=== PATIENT | male | born 1985 | race Caucasian/White ===

== ENCOUNTER 2017-02-19 09:30 | Emergency (ER) | payer OTHER ==
--- NOTE | 2017-02-19 11:38 | RAD ---
Indication: Left foot pain. 3 views of left foot demonstrates no fracture. No other bone or joint abnormality is identified. IMPRESSION: No fracture of left foot is noted.
[2017-02-19 12:12] VITALS: BP 141/96
--- NOTE | 2017-02-19 12:32 | ED ---
Mary Rangel Alfonso, scribed for Carlos Juarez MD on 02/19/17 at 1011 . Lower Extremity - HPI Summary HPI Summary: This patient is a 31 year old M presenting to [facility] with a chief complaint of left foot pain since 5 days ago. The pain is described as tightness and pressure in the left foot. The patient rates the pain 6/10 in severity. Symptoms alleviated by nothing. Patient reports left foot swelling (worse since 1.5 days ago). He denies recent trauma to the LLE. He reports ambulating well. - History of Current Complaint Chief Complaint: EDExtremityLower Stated Complaint: LT FOOT PAIN/SWELLING Time Seen by Provider: 02/19/17 10:08 Hx Obtained From: Patient Onset of Pain: Days - 5 Onset/Duration: Days - 5 Severity Initially: Moderate Severity Currently: Moderate Pain Intensity: 6 Pain Scale Used: 0-10 Numeric Timing: Constant Location: Is Discrete @ - left foot Associated Signs And Symptoms: Positive: Swelling Alleviating Factor(s): Nothing Able to Bear Weight: Yes - Allergies/Home Medications Allergies/Adverse Reactions: Allergies Allergy/AdvReac Type Severity Reaction Status Date / Time No Known Allergies Allergy Verified 06/07/12 10:05 PMH/Surg Hx/FS Hx/Imm Hx Sensory History: Denies: Hx Deafness Opthamlomology History: Denies: Hx Legally Blind Infectious Disease History: No Infectious Disease History: Denies: Traveled Outside the [place] in Last 30 Days - Family History Known Family History: Negative: Cardiac Disease, Diabetes - Social History Alcohol Use: Rare Substance Use Type: Reports: None Smoking Status (MU): Never Smoked Tobacco Review of Systems Negative: Fever Positive: Other - left foot pain, left foot swelling; negative LLE trauma All Other Systems Reviewed And Are Negative: Yes Physical Exam Triage Information Reviewed: Yes Vital Signs On Initial Exam: Initial Vitals Temp Pulse Resp BP Pulse Ox 97.1 F 64 17 137/84 98 02/19/17 09:50 02/19/17 09:50 02/19/17 09:50 02/19/17 09:50 02/19/17 09:50 Vital Signs Reviewed: Yes Appearance: Positive: Well-Appearing, No Pain Distress, Obese Skin: Positive: Warm, Skin Color Reflects Adequate Perfusion, Dry Head/Face: Positive: Normal Head/Face Inspection Eyes: Positive: Normal ENT: Positive: Normal ENT inspection Neck: Positive: Supple, Nontender Respiratory/Lung Sounds: Positive: Clear to Auscultation, Breath Sounds Present Cardiovascular: Positive: RRR Abdomen Description: Positive: Nontender, Soft Bowel Sounds: Positive: Present Musculoskeletal: Positive: Other - Pitting edema in left lateral foot and ankle. Tender at lateral malleolus and proximal left foot. Neurological: Positive: Normal, Sensory/Motor Intact, Alert, Oriented to Person Place, Time, CN Intact II-III Psychiatric: Positive: Affect/Mood Appropriate Diagnostics - Vital Signs Vital Signs Temp Pulse Resp BP Pulse Ox 02/19/17 09:59 97.2 F 62 12 140/96 99 02/19/17 09:50 97.1 F 64 17 137/84 98 - Laboratory Lab Statement: Any lab studies that have been ordered have been reviewed, and results considered in the medical decision making process. - Radiology Foot X-ray Radiology Interpretation Completed By: Radiologist - No fracture of left foot is noted. ED physician has reviewed this radiology report and agrees. Lower Extremity Course/Dx - Course Course Of Treatment: Mr. Vazquez has tenderness to varus stress of his ankle with mild swelling and no known trauma. I will treat him symptomatically and see how it goes. - Diagnoses Provider Diagnoses: Tendonitis of ankle Discharge - Discharge Plan Condition: Stable Disposition: HOME Patient Education Materials: Tendinitis (ED) Forms: *Work Release Referrals: Raquel Recinos MD [Primary Care Provider] - 4 Days Additional Instructions: Follow up with your primary care provider. Take ibuprofen for pain. The documentation as recorded by the Mary ruiz Alfonso accurately reflects the service I personally performed and the decisions made by Larry mei Richard L, MD.
== END 2017-02-19 12:14 | disposition home or self-care (01) ==
LOC: ED 09:30
DX: M77.8 Other enthesopathies, not elsewhere classified (principal); M79.89 Other specified soft tissue disorders
CPT/HCPCS: 99282

== ENCOUNTER 2017-03-19 08:38 | Emergency (ER) | payer OTHER ==
[2017-03-19 09:35] VITALS: BP 142/89
--- NOTE | 2017-03-19 10:09 | UC ---
Lower Extremity/Ankle HPI - HPI Summary HPI Summary: Patient presents with complaints of right foot pain, swelling, and pain x 2 days. He states it became worse overnight. He complains of constant pain that is worse when he flexes his toes, or walks. He denies any injury or trauma. He states he had similar symptoms about one month ago was diagnoses with tendonitis , treated and the symptoms resolved. Denies fever, chills, joint pain, or rashes , or injections. - History of Current Complaint Chief Complaint: UCLowerExtremity Stated Complaint: FOOT PAIN Time Seen by Provider: 03/19/17 09:51 Hx Obtained From: Patient Onset/Duration: Sudden Onset, Lasting Days Severity Initially: Mild Severity Currently: Moderate Aggravating Factor(s): Standing, Ambulation, Other - flexion of toes Alleviating Factor(s): Rest, Elevation, Ice Able to Bear Weight: Yes - Risk Factors Gout Risk Factors: Negative DVT Risk Factors: Negative Septic Arthritis Risk Factor: Negative - Allergies/Home Medications Allergies/Adverse Reactions: Allergies Allergy/AdvReac Type Severity Reaction Status Date / Time No Known Allergies Allergy Verified 03/19/17 09:29 PMH/Surg Hx/FS Hx/Imm Hx Previously Healthy: Yes - Surgical History Surgical History: Yes Surgery Procedure, Year, and Place: hernia-child - Family History Known Family History: Negative: Cardiac Disease, Diabetes - Social History Occupation: Employed Full-time Lives: Alone Alcohol Use: Rare Substance Use Type: Marijuana Substance Use Comment - Amount & Last Used: 2 x daily Smoking Status (MU): Never Smoked Tobacco Review of Systems Constitutional: Negative Skin: Other - redness, pain and swelling of topof right foot, and between this second and third toes. Eyes: Negative ENT: Negative Respiratory: Negative Cardiovascular: Negative Gastrointestinal: Negative Genitourinary: Negative Motor: Negative Neurovascular: Negative Musculoskeletal: Negative All Other Systems Reviewed And Are Negative: Yes Physical Exam Triage Information Reviewed: Yes Appearance: Well-Appearing Vital Signs: Initial Vital Signs Temp 98.3 F 03/19/17 09:29 Pulse 74 03/19/17 09:29 Resp 18 03/19/17 09:29 BP 142/89 03/19/17 09:29 Pulse Ox 100 03/19/17 09:29 Vital Signs Reviewed: Yes Eye Exam: Normal ENT Exam: Normal Dental Exam: Normal Neck exam: Normal Neck: Positive: 1 Respiratory Exam: Normal Cardiovascular Exam: Normal Abdominal Exam: Normal Musculoskeletal Exam: Normal Skin: Positive: Other - right foot, erythma, slight soft tissue swelling of dorsum, second and third toes are also erythemic and edematous 2-3+ vasc: cap refill less that three seconds. neuro no deficits. rom intact of toes, foot and ankle. Lower Extremity Course/Dx - Course Course Of Treatment: Patient presents with cellulitis of right foot, he was started on keflex 500 mg by mouth four times daily x 10 days. I arrange for close follow up with Dr. Recinos tomorrow at 1:30p.m. If for any reason his symptoms worsen before that I told him to go to the ER. - Differential Dx/Diagnosis Differential Diagnosis/HQI/PQRI: Cellulitis Provider Diagnoses: cellulitis Discharge - Discharge Plan Condition: Stable Disposition: HOME Prescriptions: Cephalexin CAP* [Keflex CAP*] 500 mg PO QID #40 cap predniSONE TAB* [Deltasone TAB*] 20 mg PO DAILY #5 tab Patient Education Materials: Cellulitis (ED) Forms: *Work Release Referrals: Raquel Recinos MD [Primary Care Provider] - Additional Instructions: Dr. Recinos will see your tomorrow at 1:30 pm.
== END 2017-03-19 10:14 | disposition home or self-care (01) ==
LOC: UCEAST 08:38
DX: L03.90 Cellulitis, unspecified (principal); F12.90 Cannabis use, unspecified, uncomplicated
CPT/HCPCS: 36415; 86703; 99212; G0463

== ENCOUNTER 2019-07-26 09:13 | Emergency (ER) | payer OTHER ==
--- OUTSIDE RECORDS SUMMARY | 2019-07-26 09:19 | XMS REPORT | Summary of Care ---
:1985 Author Organization [facility] Address [address] [address] Care Team Providers Name Role Phone Raquel Recinos MD Primary Care Provider Reason for Visit Reason Comments Low Back Pain Encounter Details Date Type Department Care Team Description 07/08/2019 Office Visit [facility] Abril Almnaza, HOWARD Displacement of lumbar - [facility] [address] [place] [address] intervertebral disc Therapy [address] without myelopathy [address] [place] [address] (Primary Dx) [address] [phone] [place] [address] Allergies No Known Allergiesdocumented as of this encounter (statuses as of 07/08/2019) Medications Medication Sig Dispensed Refills Start Date End Date Status albuterol HFA Take 2 Puffs by 0 Active (VENTOLIN) 108 (90 inhalation. BASE) MCG/ACT Inhalation Aero Soln fluticasone-salmeter Take 1 INHL by 0 Active ol diskus (ADVAIR inhalation TWICE DISKUS) 250-50 DAILY. MCG/DOSE Inhalation AEROSOL POWDER, BREATH ACTIVATED HYDROcodone-acetamin Take 1 Tab by mouth. 0 Active ophen (NORCO) 10-325 MG Oral Tab IBUPROFEN 200 PO Take by mouth. 0 Active Loratadine Take by mouth. 0 Active (CLARITIN) 10 MG Oral Cap amLodipine (NORVASC) Take 10 mg by mouth 0 Active 10 MG Oral Tab DAILY. documented as of this encounter (statuses as of 07/08/2019) Active Problems No known active problemsdocumented as of this encounter (statuses as of 2019) Immunizations Name Administration Dates Next Due DTAP Vaccine 08/31/1989, 11/02/1986, 1985, 1985, 1985 HIB 03/29/1987 Hepatitis B Vaccine 08/09/1995, 03/30/1995, 02/23/1995 MMR VACCINE 08/31/1989, 06/15/1986 Polio - Inactivated Vaccine 11/02/1986, 1985, 1985, 1985 TETANUS & DIPHTHERIA TOXOID (OVER 7 07/28/1998 YRS) Varicella Vaccine Live 08/02/1988 documented as of this encounter Social History Tobacco Use Types Packs/Day Years Used Date Former Smoker Quit: 06/04/2007 Smokeless Tobacco: Never Used Alcohol Use Drinks/Week oz/Week Comments Yes 1 a month Sex Assigned at Date Recorded Not on file Job Start Date Occupation Industry Not on file Not on file Not on file Travel History Travel Start Travel End No recent travel history available. documented as of this encounter Last Filed Vital Signs Not on filedocumented in this encounter Progress Notes Abril Almanza, PT - 07/08/2019 2:30 PM EST [facility] Treatment Note Outpatient Physical Therapy Services [facility] [address] [place] [phone] Treatment Number: 5 Referring Physician: Levi Kim Primary Diagnosis: ICD-9-CM ICD-10-CM 1. Displacement of lumbar intervertebral disc without myelopathy 722.10 M51.26 Plan of Care Expiration Date: Time In: 023 Time Out: 030 Total Session Minutes: 30 Pain at Start of Care: 3/10 Pain at End of Care: 2/10 Subjective Comments: Tightness in the right calf. Pain at the low back and buttocks/hip at 3/10 today. Worst pain is with putting socks/shoes on in the AM. Denies n/t in the leg in the last couple days. Interventions: Therapeutic Exercises (68697) Number of Exercises?: 9 Total Minutes (all Therapeutic Exercise): 25 Exercise #1 Exercise Name: Prone on elbows Reason for Exercise: Joint Mobility Location/Body Area: Lumbar Spine Sets/Reps: 3x30 seconds Exercise #2 Exercise Name: prone quad stretch Reason for Exercise: Flexibility Location/Body Area: Lumbar Spine Sets/Reps: 3x30 seconds Exercise #3 Exercise Name: piriformis stretch Reason for Exercise: Flexibility Location/Body Area: Lumbar Spine Sets/Reps: 3x30 seconds Exercise #4 Exercise Name: standing gastroc stretch Reason for Exercise: Flexibility Location/Body Area: LE Sets/Reps: 3x30 seconds Exercise #5 Exercise Name: hip flexor stretch Reason for Exercise: Flexibility Location/Body Area: Lumbar Spine Sets/Reps: 3x30 seconds Exercise #6 Exercise Name: hamstring stretch Reason for Exercise: Flexibility Location/Body Area: Lumbar Spine Sets/Reps: 3x30 seconds Exercise #7 Exercise Name: bridge with TA activation Reason for Exercise: Strengthening Location/Body Area: Lumbar Spine Sets/Reps: 8 Exercise #8 Exercise Name: SLR with Ta Reason for Exercise: Strengthening Location/Body Area: Lumbar Spine Sets/Reps: 8 Modalities Modalities Needed?: Estim Unattended ([employer] [id number]) Estim Unattended ([employer]Pura 25702) Reason for Use: Pain Control Body Area: lumbar Waveform Used: Interferential Parameters: 10-11.5 Total Minutes: 10 Cueing for body mechanics with positions changes required Assessment: Patient demonstrates good recall of HEP. Positive SLR on the right still. Tolerating more ROM before test is positive. Patient also reports ongoing difficulty in prolonged sitting, deliveries in the truck, riding the bus , lifting . Skilled Physical Therapy services are required to address ongoing functional and objective limitations/impairments including decreased LE flexibility, decrease lumbar ROM, decreased core and lateral hip strength. Plan for Next Visit: Continue per POC. Total UNTIMED Code Treatment Minutes: 10 Total TIMED Code Treatment Minutes: 25 Total Treatment Minutes: 35 Re- Eval: Insurance/Visits: Author: Abril Almanza, PT 07/08/2019 14:55 documented in this encounter Plan of Treatment Date Type Specialty Care Team Description 07/10/2019 Office Visit Physical Therapy Abril Almanza, PT [address] [place] [address] [phone] 07/15/2019 Office Visit Physical Therapy Abril Almanza, PT [address] [place] [address] [place] [address] [phone] 07/17/2019 Office Visit Physical Therapy Abril Almanza, PT [address] [place] [address] [place] [address] [phone] Health Maintenance Due Date Last Done Comments DEPRESSION SCREENING 1997 DTaP/Tdap/Td Vaccines (7 - 07/28/2008 07/28/1998, 08/31/1989, Tdap) 11/02/1986, Additional history exists INFLUENZA VACCINE (#1) 2019 HEPATITIS A IMMUNIZATION Aged Out No longer eligible SERIES based on patient's age to complete this topic HPV IMMUNIZATION SERIES Aged Out No longer eligible based on patient's age to complete this topic MENINGOCOCCAL VACCINE IMM Aged Out No longer eligible based on patient's age to complete this topic PNEUMOCOCCAL 0-64 YRS Aged Out No longer eligible based on patient's age to complete this topic documented as of this encounter Results Not on filedocumented in this encounter Visit Diagnoses Diagnosis Displacement of lumbar intervertebral disc without myelopathy documented in this encounter Guarantor Name Account Type Relation to Date of Phone Billing Patient Address Hal Vazquze II Personal/Family 1985 [address] (Home) [place], [place] (Work) [address] documented as of this encounter
--- OUTSIDE RECORDS SUMMARY | 2019-07-26 09:19 | XMS REPORT | Summary of Care ---
:1985 Author Organization [facility] Address [address] [address] Care Team Providers Name Role Phone Raquel Recinos MD Primary Care Provider Reason for Visit Reason Comments Low Back Pain Encounter Details Date Type Department Care Team Description 07/01/2019 Office Visit [facility] Abril Almanza, HOWARD Displacement of lumbar - [facility] [address] [place] [address] intervertebral disc Therapy [address] without myelopathy [address] [place] [address] (Primary Dx) [address] [phone] [place] [address] Allergies No Known Allergiesdocumented as of this encounter (statuses as of 07/01/2019) Medications Medication Sig Dispensed Refills Start Date [...] as of this encounter (statuses as of 07/01/2019) Active Problems No known active problemsdocumented as [...] encounter Progress Notes Abril Almanza, PT - 07/01/2019 3:30 PM EST [facility] Treatment Note Outpatient Physical Therapy Services [facility] [address] [place] [phone] Treatment Number: 3 Referring Physician: Levi Kim Primary Diagnosis: ICD-9-CM ICD-10-CM 1. Displacement of lumbar intervertebral disc without myelopathy 722.10 M51.26 Plan of Care Expiration Date: Time In: 339 Time Out: 404 Total Session Minutes: 25 Pain at Start of Care: 12/11 Pain at End of Care: 10/11 Subjective Comments: Perry pretty good over the weekend but then pain started to go down the leg today at work. 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 Interventions: Therapeutic Exercises (47977) Number of Exercises?: 7 Total Minutes (all Therapeutic Exercise): 25 Exercise #1 Exercise Name: Prone on elbows Reason for Exercise: Joint Mobility Location/Body Area: Lumbar Spine Sets/Reps: 3x30 seconds Exercise #2 Exercise Name: prone knee flexion Reason for Exercise: Joint Mobility Location/Body Area: Lumbar Spine Sets/Reps: 10 Exercise #3 Exercise Name: piriformis stretch Reason for Exercise: Flexibility Location/Body Area: Lumbar Spine Sets/Reps: 3x30 seconds Exercise #5 Exercise Name: hip flexor stretch Reason for Exercise: Flexibility Exercise #6 Exercise Name: 90-90 glides Reason for Exercise: Muscle Performance;Flexibility Location/Body Area: Lumbar Spine Sets/Reps: 5x5 Exercise #7 Exercise Name: bridge with TA activation Reason for Exercise: Strengthening Location/Body Area: Lumbar Spine Sets/Reps: 8 Modalities Modalities Needed?: Estim Unattended ([employer] [id number]) Estim Unattended ([employer] 81594) Reason for Use: Pain Control Body Area: lumbar Waveform Used: Interferential Parameters: 10-11.5 Total Minutes: 10 Assessment: Patient demonstrates improved lumbar ROM. Tolerates prone on hands without complaints. Patient also reports ongoing difficulty in sitting, twisting , repetitive bending/lifting. Skilled Physical Therapy services are required to address ongoing functional and objective limitations/impairments including decreased LE flexibility, decreased core strength, impaired posture and body mechanics. Plan for Next Visit: Continue per POC. Add more strengthening as tolerated. Total UNTIMED Code Treatment Minutes: 10 Total TIMED Code Treatment Minutes: 25 Total Treatment Minutes: 35 Author: Abril Almanza, HOWARD 07/01/2019 17:16 documented in this encounter Plan of Treatment Date Type Specialty Care Team Description 07/03/2019 Office Visit Physical Therapy Abril Almanza, PT [address] [place] [address] [place] [address] [phone] 07/07/2019 Office Visit Orthopedics Levi Kim MD [address] [facility] [place] [address] [phone] 07/08/2019 Office Visit Physical Therapy Abril Almanza, PT [address] [facility] [place] [address] [phone] 07/10/2019 Office Visit Physical Therapy Abril Almanza, PT [address] [place] [address] [place] [address] [phone] 07/15/2019 Office Visit Physical Therapy Abril Almanza, PT [address] [place] [address] [phone] 07/17/2019 Office Visit Physical Therapy Abril Almanza, PT [address] [place] [address] [place] [address] [phone] Health Maintenance Due Date Last Done Comments [...] to Date of Phone Billing Patient Address GeorgeHal II Personal/Family 1985 [address] (Home) [place], [place] ([place]) [address] documented as of this encounter
--- OUTSIDE RECORDS SUMMARY | 2019-07-26 09:19 | XMS REPORT | Summary of Care ---
:1985 Author Organization [facility] Address [address] [address] Care Team Providers Name Role Phone Raquel Recinos MD Primary Care Provider Reason for Visit Reason Comments Low Back Pain Encounter Details Date Type Department Care Team Description 07/22/2019 Office Visit [facility] Abril Almanza, HOWARD Displacement of lumbar - [facility] [address] [place] [address] intervertebral disc Therapy [address] without myelopathy [address] [place] [address] (Primary Dx) [address] [phone] [place] [address] Allergies No Known Allergiesdocumented as of this encounter (statuses as of 07/22/2019) Medications Medication Sig Dispensed Refills Start Date [...] as of this encounter (statuses as of 07/22/2019) Active Problems No known active problemsdocumented as [...] Assigned at Date Recorded Not on file documented as of this encounter Last Filed Vital Signs Not on filedocumented in this encounter Progress Notes Abril Almanza, PT - 07/22/2019 2:30 PM EST [facility] Treatment Note Outpatient Physical Therapy [facility] [address] [place] [phone] Treatment Number: 7 Referring Physician: Levi Kim Primary Diagnosis: ICD-9-CM ICD-10-CM 1. Displacement of lumbar intervertebral disc without myelopathy 722.10 M51.26 Plan of Care Expiration Date: Time In: 229 Time Out: 299 Total Session Minutes: 30 Pain at Start of Care: 06/13 Pain at End of Care: 06/13 Subjective Comments: Aching pain at the central low back today. No pain on Sunday but Sunday it ached because he was sitting more. Denies leg pain today. Interventions: Therapeutic Exercises (28609) Number of Exercises?: 10 Total Minutes (all Therapeutic Exercise): 25 Exercise #1 Exercise Name: Prone on elbows Reason for Exercise: Joint Mobility Location/Body Area: Lumbar Spine Sets/Reps: 3x30 seconds Exercise #3 Exercise Name: piriformis stretch Reason for Exercise: Flexibility Location/Body Area: Lumbar Spine Sets/Reps: 3x30 seconds Exercise #4 Exercise Name: standing gastroc stretch Reason for Exercise: Flexibility Location/Body Area: LE Sets/Reps: 3x30 seconds Exercise #6 Exercise Name: hamstring stretch Reason for Exercise: Flexibility Location/Body Area: Lumbar Spine Sets/Reps: 3x30 seconds Exercise #7 Exercise Name: bridge with TA activation Reason for Exercise: Strengthening Location/Body Area: Lumbar Spine Sets/Reps: 8 Exercise #8 Exercise Name: SLR with Ta Reason for Exercise: Strengthening Location/Body Area: Lumbar Spine Sets/Reps: 8 Exercise #9 Exercise Name: wall squat with Ta Reason for Exercise: Strengthening Location/Body Area: Lumbar Spine Sets/Reps: 10x5 Exercise #10 Exercise Name: bug Reason for Exercise: Strengthening Location/Body Area: Lumbar Spine Sets/Reps: 5 Estim Unattended ([employer] [id number]) Reason for Use: Pain Control Body Area: lumbar Waveform Used: Interferential Parameters: 18 Total Minutes: 10 5 minutes of estim with prone therapeutic exercise. HEP progressed. Stressed importance of continuing with strengthening and stretching even after symptoms subside Assessment: Patient demonstrates decreased LE flexibility, decreased core strength, impaired body mechanics.. Patient also reports ongoing difficulty in lifting, prolonged sitting, driving. Skilled Physical Therapy services are required to address ongoing functional and objective limitations/impairments including those state above. Plan for Next Visit: Continue per POC. Total UNTIMED Code Treatment Minutes: 10 Total TIMED Code Treatment Minutes: 25 Total Treatment Minutes: 35 Re- Eval: Insurance/Visits: Author: Abril Almanza, PT 07/22/2019 15:57 documented in this encounter Plan of Treatment Date Type Specialty Care Team Description 07/29/2019 Office Visit Physical Therapy Abril Almanza, PT [address] [place] [address] [phone] Health Maintenance Due Date Last Done Comments [...] Date of Phone Billing Patient Address Hal Vazquez II Personal/Family 1985 [address] (Home) [place], [place] ([place]) [address] documented as of this encounter
--- OUTSIDE RECORDS SUMMARY | 2019-07-26 09:19 | XMS REPORT | Summary of Care ---
:1985 Author Organization [facility] Address 1 [facility] ANJEL [place] [address] Care Team Providers Name Role Phone Raquel Recinos MD Primary Care Provider Reason for Visit Reason Comments Follow Up 2 wk fu low back pain. Patient states his low back is doing alright , less pain. Patient is going to PT and it is going good. Encounter Details Date Type Department Care Team Description 07/07/2019 Office Visit [facility] - Levi Kim MD Ruptured lumbar disc (Primary Dx); [place] 10 [facility] Cervical radiculopathy 10 [facility] [address] [place], [place] [address] [place] [address] [phone] Allergies No Known Allergiesdocumented as of this encounter (statuses as of 07/07/2019) Medications Medication Sig Dispensed Refills Start Date [...] as of this encounter (statuses as of 07/07/2019) Active Problems No known active problemsdocumented as [...] of this encounter Last Filed Vital Signs Vital Sign Reading Time Taken Comments Blood Pressure 121/94 07/07/2019 10:49 AM EST Pulse 86 07/07/2019 10:49 AM EST Temperature - - Respiratory Rate - - Oxygen Saturation - - Inhaled Oxygen Concentration - - Weight 131.5 kg (290 lb) 07/07/2019 10:49 AM EST Height 193 cm (6' 4") 07/07/2019 10:49 AM EST Body Mass Index 35.3 07/07/2019 10:49 AM EST documented in this encounter Progress Notes Levi Kim MD - 07/07/2019 11:00 AM EST Name: Hal Vazquez II : 1985 Date of Service: 07/07/2019 Chief Complaint Patient presents with Follow Up 2 wk fu low back pain. Patient states his low back is doing alright, less pain. Patient is going to PT and it is going good. Doing much better. Patient feels physical therapy is helping. Minimal neck and shoulder pain. Still having radicular pain primarily in the posterior aspect of the right leg but not distal to the ankle. 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 Describes pain as 2/10. Patient already had approximately 2-week trial of prednisone that did not help very much. Physical exam shows a healthy-appearing man in no acute distress. Alert and oriented. Shoulder range of motion is full. No pain on motion. Negative impingement sign. Low back nontender. Hip rangeof motion is full. Positive straight leg raising. No focal motor or sensory abnormalities. Impression: Doing better. Plan: Continue physical therapy. If radicular pain remains or interferes with activities of daily living, consider injections. His father and I believe his alcohol have had epidurals. ICD-9-CM ICD-10-CM 1. Ruptured lumbar disc 722.10 M51.26 2. Cervical radiculopathy 723.4 M54.12 Author: Levi Kim MD 07/07/2019 11:10 This record contains sections created with voice recognition software. It has been electronically signed. A reasonable attempt at proofreading has been made. Please call with any questions or corrections. documented in this encounter Plan of Treatment Date Type Specialty Care Team Description 07/08/2019 Office Visit Physical Therapy Abril Almanza, PT [address] [place] [address] [phone] 07/10/2019 Office Visit Physical Abril Robertson, PT [address] [place] [address] [phone] 07/15/2019 Office Visit Abril Ellington, PT [address] [place] [address] [phone] 07/17/2019 Office Visit Physical Therapy Abril Almanza, PT [address] [place] [address] [phone] Health Maintenance Due Date Last Done Comments [...] filedocumented in this encounter Visit Diagnoses Diagnosis Ruptured lumbar disc Displacement of lumbar intervertebral disc without myelopathy Cervical radiculopathy Brachial neuritis or radiculitis nos documented in this encounter Guarantor Name Account Type Relation to Date of Phone Billing Patient Address Hal Vazquez II Personal/Family 1985 [address] [facility] (Home) [place], [place] (Work) [address] documented as of this encounter
--- OUTSIDE RECORDS SUMMARY | 2019-07-26 09:19 | XMS REPORT | Summary of Care ---
:1985 Author Organization [facility] Address 1 [address] [place] [address] Care Team Providers Name Role Phone Raquel Recinos MD Primary Care Provider Reason for Visit Reason Comments Low Back Pain Encounter Details Date Type Department Care Team Description 07/03/2019 Office Visit [facility] Abril Almanza, HOWARD Displacement of lumbar - [facility] [address] [place] [address] intervertebral disc Therapy [address] without myelopathy 10 [place] [address] (Primary Dx) [address] [phone] [place] [address] Allergies No Known Allergiesdocumented as of this encounter (statuses as of 07/03/2019) Medications Medication Sig Dispensed Refills Start Date [...] as of this encounter (statuses as of 07/03/2019) Active Problems No known active problemsdocumented as [...] encounter Progress Notes Abril Almanza, PT - 07/03/2019 2:30 PM EST [facility] [place] [facility] Treatment Note Outpatient Physical Therapy Services [facility] [address] [place] [phone] Treatment Number: 4 Referring Physician: Levi Kim Primary Diagnosis: ICD-9-CM ICD-10-CM 1. Displacement of lumbar intervertebral disc without myelopathy 722.10 M51.26 Plan of Care Expiration Date: Time In: 237 Time Out: 300 Total Session Minutes: 23 Pain at Start of Care: 3/10 Pain at End of Care: 2/10 Subjective Comments: Has had no neck or shoulder pain this week. Low back seems better. Denies numbness and tingling in the leg. Just feels tight in the back of the leg. Interventions: Therapeutic Exercises (59677) Number of Exercises?: 7 Total Minutes (all [...] Sets/Reps: 8 Modalities Modalities Needed?: Estim Unattended ([employer] 38838) Estim Unattended ([employer] 24538) Reason for Use: Pain Control Body Area: lumbar Waveform Used: Interferential Parameters: 10-11.5 Total Minutes: 10 Assessment: Patient demonstrates improved tolerance for therapeutic exercise. Pain appears to be centralizing. Patient also reports ongoing difficulty in prolonged sitting, twisting, riding the bus. Skilled Physical Therapy services are required to address ongoing functional and objective limitations/ impairments including decreased lumbar ROM, decreased LE flexibility, decreased core strength, impaired posture. Plan for Next Visit: Continue per POC. Add SLR with Ta if tolerated. Total UNTIMED Code Treatment Minutes: 10 Total TIMED Code Treatment Minutes: 25 Total Treatment Minutes: 35 Author: Abril Almanza, PT 07/03/2019 14:58 documented in this encounter Plan of Treatment Date Type Specialty Care Team Description 07/07/2019 Office Visit Orthopedics Levi Kim MD 10 [facility] [place] [address] [phone] 07/08/2019 Office Visit Physical Therapy Abril Almanza, PT [address] [place] [address] [place] [address] [phone] 07/10/2019 Office Visit Physical Therapy Abril Almnaza, PT [address] [place] [address] [place] [address] [phone] 07/15/2019 Office Visit Physical Therapy Abril Almanza, PT [address] [place] [address] [place] [address] [phone] 07/17/2019 Office Visit Physical Therapy Abril Almanza, PT [address] [place] [address] [place] [address] [phone] Health Maintenance Due Date Last Done Comments [...] Address Hal Vazquez II Personal/Family 1985 [address] [facility] (Home) [place], [place] (Work) [address] documented as of this encounter
--- OUTSIDE RECORDS SUMMARY | 2019-07-26 09:19 | XMS REPORT | Summary of Care ---
:1985 Author Organization [facility] Address 1 [address] [place] [address] Care Team Providers Name Role Phone Raquel Recinos MD Primary Care Provider Reason for Visit Reason Comments Low Back Pain Encounter Details Date Type Department Care Team Description 07/15/2019 Office Visit [facility] Abril Almanza, HOWARD Displacement of lumbar - [place] [facility] 10 [facility] intervertebral disc Therapy [address] without myelopathy 10 [place] [address] (Primary Dx) [address] [phone] [place] [address] Allergies No Known Allergiesdocumented as of this encounter (statuses as of 07/15/2019) Medications Medication Sig Dispensed Refills Start Date [...] as of this encounter (statuses as of 07/15/2019) Active Problems No known active problemsdocumented as [...] encounter Progress Notes Abril Almanza, PT - 07/15/2019 2:30 PM EST [facility] Treatment Note Outpatient Physical Therapy Services [facility] [place] [address] [place] [phone] Treatment Number: 6 Referring Physician: Levi Kim Primary Diagnosis: ICD-9-CM ICD-10-CM 1. Displacement of lumbar intervertebral disc without myelopathy 722.10 M51.26 Plan of Care Expiration Date: Time In: 229 Time Out: 299 Total Session Minutes: 30 Pain at Start of Care: 06/13 Pain at End of Care: 06/13 Subjective Comments: Has not had any pain down the leg in the last few days. Pain seems contained to the low back on the right side. Interventions: Therapeutic Exercises (07732) Number of Exercises?: 9 Total Minutes (all [...] Strengthening Location/Body Area: Lumbar Spine Sets/Reps: 10x5 Estim Unattended ([employer] 44859) Reason for Use: Pain Control Body Area: lumbar Waveform Used: Interferential Parameters: 10-11.5 Total Minutes: 10 Assessment: Patient demonstrates improved tolerance to strengthening. Patient also reports ongoingdifficulty in prolonged sitting, doing deliveries at work, lifting. Skilled Physical Therapy services are required to address ongoing functional and objective limitations/impairments including decreased LE flexibility, decreased core and lateral hip strength, decreased lumbar ROM. Plan for Next Visit: Continue per POC. Print more strengthening for home and hamstring stretch, prone on hands Total UNTIMED Code Treatment Minutes: 10 Total TIMED Code Treatment Minutes: 25 Total Treatment Minutes: 35 Re- Eval: Insurance/Visits: Author: Abril Almanza, PT 07/15/2019 15:01 documented in this encounter Plan of Treatment Date Type Specialty Care Team Description 07/22/2019 Office Visit Physical Therapy Abril Almanza, PT [address] [place] [address] [phone] 07/29/2019 Office Visit Physical Therapy Abril Almanza, PT [address] [place] [address] [phone] Health Maintenance Due Date Last Done Comments [...] Patient Address GeorgeHal II Personal/Family 1985 [address] [facility] (Home) [place], [place] (Work) [address] documented as of this encounter
--- OUTSIDE RECORDS SUMMARY | 2019-07-26 09:20 | XMS REPORT | Summary of Care ---
:1985 Author Organization [facility] Address 1 [address] [place] [address] Care Team Providers Name Role Phone Raquel Recinos MD Primary Care Provider Reason for Visit Reason Comments Low Back Pain Encounter Details Date Type Department Care Team Description 06/26/2019 Office Visit [facility] Abril Almanza, HOWARD Displacement of lumbar - [facility] [facility] [address] [place] [address] intervertebral disc Therapy [address] without myelopathy 10 [place] [address] (Primary Dx) [address] [phone] [place] [address] Allergies No Known Allergiesdocumented as of this encounter (statuses as of 06/26/2019) Medications Medication Sig Dispensed Refills Start Date [...] as of this encounter (statuses as of 06/26/2019) Active Problems No known active problemsdocumented as [...] encounter Progress Notes Abril Almanza, PT - 06/26/2019 2:30 PM EST [facility] Treatment Note Outpatient Physical Therapy Services [facility] [address] [place] [phone] Treatment Number: 2 Referring Physician: Levi Kim Primary Diagnosis: ICD-9-CM ICD-10-CM 1. Displacement of lumbar intervertebral disc without myelopathy 722.10 M51.26 Plan of Care Expiration Date: Time In: 023 Time Out: 030 Total Session Minutes: 25 Pain at Start of Care: 12/11 Pain at End of Care: 10/11 Subjective Comments: Right low back and buttocks worse today. Had to ride to [employer] which increasedpain. Is going all the way to the calf. Yesterday he felt like pain was better than it has been Interventions: Therapeutic Exercises (83059) Number of Exercises?: 7 Total Minutes (all [...] Sets/Reps: 3x30 seconds Exercise #6 Exercise Name: 90-90 glides Reason for Exercise: Muscle Performance;Flexibility Location/Body Area: Lumbar Spine Sets/Reps: 5x5 Exercise #7 Exercise Name: bridge with TA activation Reason for Exercise: Strengthening Location/Body Area: Lumbar Spine Sets/Reps: 8 Estim Unattended ([employer] [id number]) Reason for Use: Pain Control Body Area: lumbar Waveform Used: Interferential Parameters: 10-11.5 Total Minutes: 10 5 minutes estim alone, 5 with prone therapeutic exercise Assessment: Patient demonstrates good recall of HEP. Difficulty with transverse abdomonis contraction noted but with cueing can correct. Patient also reports ongoing difficulty in position changes, prolonged sitting. Skilled Physical Therapy services are required to address ongoing functional and objective limitations/impairments including decreased LE flexibility, decreased core strength, decreased lumbar ROM. Plan for Next Visit: Continue per POC. Total UNTIMED Code Treatment Minutes: 10 Total TIMED Code Treatment Minutes: 25 Total Treatment Minutes: 35 Author: Abril Almanza, HOWARD 06/26/2019 16:03 documented in this encounter Plan of Treatment Date Type Specialty Care Team Description 07/01/2019 Office Visit Physical Therapy Abril Almanza, PT [address] [place] [address] [phone] 07/03/2019 Office Visit Physical Therapy Abril Almanza, PT [address] [place] [address] [place] [address] [phone] 07/07/2019 Office Visit Orthopedics eLvi Kim MD 10 [facility] [place] [address] [phone] 07/08/2019 Office Visit Physical Therapy Abril Almanza, PT 10 [facility] [place] [address] [phone] 07/10/2019 Office Visit Physical Therapy Abril Almanza, PT [address] [place] [address] [place] [address] [phone] 07/15/2019 Office Visit Physical Therapy Abril Almanza, PT [address] [place] [address] [phone] 07/17/2019 Office Visit Physical Therapy Abril Almanza, PT [address] [place] [address] [phone] Health Maintenance Due Date Last Done Comments [...] Address Hal Vazquez II Personal/Family [address] (Home) [place], [place] ([place]) [address] documented as of this encounter
--- OUTSIDE RECORDS SUMMARY | 2019-07-26 09:20 | XMS REPORT | Summary of Care ---
:1985 Author Organization [facility] Address 1 [place] [place] [address] Care Team Providers Name Role Phone Raquel Recinos MD Primary Care Provider Reason for Referral Refer to Department Only (Routine) Status Reason Specialty Diagnoses / Referred By Referred To Procedures Contact Contact Pending Physical Diagnoses Ruptured lumbar disc Cervical radiculopathy [facility] Review Therapy MD [facility] - [address] [place] [address] Physical [facility] [address] [place] [address] [address] [address] [address] Phone: [place], [place] [phone] [address] Fax: Reason for Visit Reason Comments New Patient MRI results of lumbar spine. MRI on [facility]. Low back pain with radiating pain up back to shoulder and down leg. Encounter Details Date Type Department Care Team Description 06/16/2019 Office Visit [facility] - Levi Kim MD Ruptured lumbar disc (Primary Dx); [address] Cervical radiculopathy 10 [facility] [place] [place] [address] [place] [address] [phone] Allergies No Known Allergiesdocumented as of this encounter (statuses as of 06/16/2019) Medications Medication Sig Dispensed Refills Start Date [...] as of this encounter (statuses as of 06/16/2019) Active Problems No known active problemsdocumented as [...] Sign Reading Time Taken Comments Blood Pressure 121/82 06/16/2019 1:43 PM EST Pulse 83 06/16/2019 1:43 PM EST Temperature - - Respiratory Rate - - Oxygen Saturation - - Inhaled Oxygen Concentration - - Weight 131.5 kg (290 lb) 06/16/2019 1:43 PM EST Height 193 cm (6' 4") 06/16/2019 1:43 PM EST Body Mass Index 35.3 06/16/2019 1:43 PM EST documented in this encounter Progress Notes Levi Kim MD - 06/16/2019 3:00 PM EST Name: Hal Vazquez II : 1985 Date of Service: 06/16/2019 Referring Provider: Raquel Short Primary Care Provider: Raquel Recinos Chief Complaint Patient presents with New Patient MRI results of lumbar spine. MRI on [facility]. Low back pain with radiating pain up back to shoulder anddown leg. History reviewed. No pertinent past medical history. Past Surgical History: Procedure Laterality Date UNILATERAL ORCHIECTOMY for undescended testicle Current Outpatient Medications Medication Sig albuterol HFA (VENTOLIN) 108 (90 BASE) MCG/ACT Inhalation Aero Soln Take 2 Puffs by inhalation. amLodipine (NORVASC) 10 MG Oral Tab Take 10 mg by mouth DAILY. fluticasone-salmeterol diskus (ADVAIR DISKUS) 250-50 MCG/DOSE Inhalation AEROSOL POWDER, BREATH ACTIVATED Take 1 INHL by inhalation TWICE DAILY. HYDROcodone-acetaminophen (NORCO) 10-325 MG Oral Tab Take 1 Tab by mouth. IBUPROFEN 200 PO Take by mouth. Loratadine (CLARITIN) 10 MG Oral Cap Take by mouth. No current facility-administered medications for this visit. No Known Allergies Social History Socioeconomic History Marital status: Single Spouse name: Not on file Number of children: Not on file Years of education: Not on file Highest education level: Not on file Occupational History Not on file Social Needs Financial resource strain: Not on file Food insecurity Worry: Not on file Inability: Not on file Transportation needs Medical: Not on file Non-medical: Not on file Tobacco Use Smoking status: Former Smoker Last attempt to quit: 06/04/2007 Years since quittin.0 Smokeless tobacco: Never Used Substance and Sexual Activity Alcohol use: Yes Comment: 1 a month Drug use: Yes Comment: marijuana Sexual activity: Yes Partners: Female Lifestyle Physical activity Days per week: Not on file Minutes per session: Not on file Stress: Not on file Relationships Social connections Talks on phone: Not on file Gets together: Not on file Attends orthodoxy service: Not on file Active member of club or organization: Not on file Attends meetings of clubs or organizations: Not on file Relationship status: Not on file Intimate partner violence Fear of current or ex partner: Not on file Emotionally abused: Not on file Physically abused: Not on file Forced sexual activity: Not on file Other Topics Concern Back Care Not Asked Bike Helmet Not Asked Blood Transfusions No Caffeine Concern Not Asked Exercise No Hobby Hazards Not Asked International Travel Not Asked Service Not Asked Occupational Exposure Not Asked Seat Belt Not Asked Self-Exams Not Asked Sleep Concern Not Asked Special Diet Not Asked Stress Concern Not Asked Weight Concern Not Asked Social History Narrative Single Work in bar /pharmacy Pets: ferrets Family History Problem Relation Age of Onset Heart Maternal Grandfather cad 50 ROS: Review of systems intake completed by clinical staff. I have reviewed and agree with their documentation. 34-year-old man referred by Mr. Hobson, nurse at Dr. Recinos's office. Patient has a history of chronic back pain with occasional sciatic symptoms. Had a flareup a couple of weeks ago. Had some minimal chiropractic treatment in the past but no recent treatment including no physical therapy. No history of injury. 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 Had a flareup approximately 2 weeks ago including right-sided low back pain and right sciatic type pain. Currently on I believe [place]. Also, approximately 2 weeks ago, developed right- sided neck pain with radicular symptoms. Physical exam shows a healthy-appearing man in no acute distress. Alert and oriented. Neck held viktoriya stiff position. Painful rotation of neck to the right side. Tender and tight upper trapezius as well as right-sided rhomboids. Shoulder exam negative. No gross focal motor or sensory abnormalities right upper extremity. Low back held in a stiff position. Tight musculature. Tender. Straight leg raising positive. Hip range of motion is limited but probably due to pain. Imaging: Recent MRI shows a broad-based disc bulging with superimposed central disc extrusion at L5-S1 this effaces the lateral recesses bilateral with neuroforaminal narrowing. Also central disc protrusion at L4-5 Discussion: Cannot at present localized to any specific dermatome. Plan: Physical therapy. Reevaluate in 2 weeks. Impression: ICD-9-CM ICD-10-CM 1. Ruptured lumbar disc 722.10 M51.26 REFER TO PHYSICAL THERAPY / REHAB 2. Cervical radiculopathy 723.4 M54.12 REFER TO PHYSICAL THERAPY / REHAB Author: Levi Kim MD 06/16/2019 14:07 This record contains sections created with voice recognition software. It has been electronically signed. A reasonable attempt at proofreading has been made. Please call with any questions or corrections. documented in this encounter Plan of Treatment Date Type Specialty Care Team Description 06/24/2019 Office Visit Physical Therapy Abril Almanza, PT 10 [facility] [place] [address] [place] [address] [phone] 07/07/2019 Office Visit Orthopedics Levi Kim MD 10 [facility] [place] [address] [phone] Name Type Priority Associated Diagnoses Order Schedule REFER TO PHYSICAL Referral Routine Ruptured lumbar disc Ordered: 06/16/2019 THERAPY / REHAB Cervical radiculopathy Health Maintenance Due Date Last Done Comments [...] Address Hal Vazquez II Personal/Family [address] (Home) [place], [place] ([place]) [address] documented as of this encounter
--- OUTSIDE RECORDS SUMMARY | 2019-07-26 09:20 | XMS REPORT | Continuity of Care Document ---
:1985 External Reference #:[id number] Author Name Noel Hobson N.P. Address [address] [facility] [address] [place] [address] Care Team Providers Name Role Phone Raquel Recinos MD - Family Medicine Care Team Information Document Processor Problems Description No Information Available Social History Type Date Description Comments Sex Unknown ETOH Use Occasionally consumes alcohol Tobacco Use Start: Unknown Patient is a current smoker, smokes some days Smoking Status Reviewed: 07/08/18 Patient is a current smoker, smokes some days Allergies, Adverse Reactions, Alerts Description No Known Drug Allergies Medications Active Medications SIG Qnty Indications Ordering Date Provider Azithromycin z stuart uad 6tabs J20.9 Raquel Recinos, 06/18/2019 250mg M.D. Tablets Hydrocodone 1 tab by mouth 120tabs Z68.35 Raquel Recinos, 06/06/2019 Bitartrate/Acetaminoph every 6 hours as M.D. en needed severe 5-325mg Tablets pain Nortriptyline HCL 1 cap by mouth 30caps G47.00 Raquel Recinos, 07/10/2018 75mg at bedtime M.D. Capsules Naproxen 1 tab by mouth 60tabs W01.10xA Raquel Recinos, 04/29/2018 500mg Tablets twice a day M.D. Tylenol Extra Strength 2 tabs by mouth 180tabs W01.10xA Raquel Recinos, 04/29/2018 three times a M.D. 500mg Tablets day as directed. max daily dose of tylenol from all sources to not exceed 4000mg Claritin 1 by mouth every 30tabs J30.2 Tunde Recinosmakaia Hopper, 03/06/2018 10mg Tablets day M.D. Proventil HFA 2 unit by mouth 13.4gm J45.909 Jorje, Tundeevelyne Hopper, 05/06/2015 108(90Base) every 4 hours as M.D. mcg/Act Aerosol needed Advair Diskus 1 by mouth twice 60units J45.909 Jorje, Tundeevelyne Hopper, 05/06/2015 a day M.D. 250-50mcg/Dose Aerosol Amlodipine Besylate 1 by mouth every 30tabs I10 Jorje, Tundeevelyne Hopper, 10mg day M.D. Tablets History Medications Amoxicillin/Clavulanate 1 tab by 14tabs K12.0 [facility] - Potassium mouth twice a M., M.D. 06/17/2019 875-125mg Tablets day Prednisone 2 tab by 30tabs M54.41 J[facility], [facility] 04/23/2019 - 20mg Tablets mouth daily 4 M., M.D. 06/17/2019 days,30mg x3d,46dxn2d,1 0gmx7d Hydrocodone 1 tab by 42tabs Z68.35 Jorje, [facility] 04/23/2019 - Bitartrate/Acetaminophen mouth Q4H prn Jermaine Hopper.DPatrick 04/30/2019 5-325mg Tablets Severe Pain Immunizations CPT Code Status Date Vaccine Lot # [id number] Given 03/06/2018 Flu Vaccine [id number] Given 03/29/2015 Flu Vaccine Vital Signs Date Vital Result Comment 06/18/2019 9:33am BP Systolic 125 mmHg BP Diastolic 58 mmHg Height 76 inches 6'4" Weight 292.00 lb BMI (Body Mass Index) 35.5 kg/m2 Heart Rate 100 /min Respiratory Rate 17 /min 06/06/2019 9:19am BP Systolic 135 mmHg BP Diastolic 70 mmHg Height 76 inches 6'4" Weight 299.00 lb BMI (Body Mass Index) 36.4 kg/m2 Heart Rate 90 /min Respiratory Rate 17 /min Results Description No Information Available Procedures Description No Information Available Medical Devices Description No Information Available Encounters Type Date Location Provider Dx Diagnosis Office Visit 06/18/2019 [place] [facility] Noel Hobson, I10 Essential ( primary) 9:30a N.P. hypertension M25.569 Pain in unspecified knee J45.909 Unspecified asthma, uncomplicated J30.2 Other seasonal allergic rhinitis L20.9 Atopic dermatitis, unspecified F33.9 Major depressive disorder, recurrent, unspecified F41.9 Anxiety disorder, unspecified G47.00 Insomnia, unspecified K64.9 Unspecified hemorrhoids F17.210 Nicotine dependence, cigarettes, uncomplicated F12.10 Cannabis abuse, uncomplicated H53.30 Unspecified disorder of binocular vision L72.3 Sebaceous cyst R73.01 Impaired fasting glucose E66.01 Morbid (severe) obesity due to excess calories K58.1 Irritable bowel syndrome with constipation M25.572 Pain in left ankle and joints of left foot M54.5 Low back pain G25.81 Restless legs syndrome N20.0 Calculus of kidney I44.0 Atrioventricular block, first degree 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 hypertension M25.569 Pain in unspecified knee J45.909 Unspecified asthma, uncomplicated J30.2 Other seasonal allergic rhinitis L20.9 Atopic dermatitis, unspecified F33.9 Major depressive disorder, recurrent, unspecified F41.9 Anxiety disorder, unspecified G47.00 Insomnia, unspecified K64.9 Unspecified hemorrhoids F17.210 Nicotine dependence, cigarettes, uncomplicated F12.10 Cannabis abuse, uncomplicated H53.30 Unspecified disorder of binocular vision L72.3 Sebaceous cyst R73.01 Impaired fasting glucose E66.01 Morbid (severe) obesity due to excess calories K58.1 Irritable bowel syndrome with constipation M25.572 Pain in left ankle and joints of left foot M54.5 Low back pain G25.81 Restless legs syndrome N20.0 Calculus of kidney I44.0 Atrioventricular block, first degree 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 hypertension M25.569 Pain in unspecified knee J45.909 Unspecified asthma, uncomplicated J30.2 Other seasonal allergic rhinitis L20.9 Atopic dermatitis, unspecified F33.9 Major depressive disorder, recurrent, unspecified F41.9 Anxiety disorder, unspecified G47.00 Insomnia, unspecified K64.9 Unspecified hemorrhoids F17.210 Nicotine dependence, cigarettes, uncomplicated F12.10 Cannabis abuse, uncomplicated H53.30 Unspecified disorder of binocular vision L72.3 Sebaceous cyst R73.01 Impaired fasting glucose E66.01 Morbid (severe) obesity due to excess calories K58.1 Irritable bowel syndrome with constipation M25.572 Pain in left ankle and joints of left foot M54.5 Low back pain G25.81 Restless legs syndrome N20.0 Calculus of kidney I44.0 Atrioventricular block, first degree 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 hypertension M25.569 Pain in unspecified knee J45.909 Unspecified asthma, uncomplicated J30.2 Other seasonal allergic rhinitis L20.9 Atopic dermatitis, unspecified F33.9 Major depressive disorder, recurrent, unspecified F41.9 Anxiety disorder, unspecified G47.00 Insomnia, unspecified K64.9 Unspecified hemorrhoids F17.210 Nicotine dependence, cigarettes, uncomplicated F12.10 Cannabis abuse, uncomplicated H53.30 Unspecified disorder of binocular vision L72.3 Sebaceous cyst R73.01 Impaired fasting glucose E66.01 Morbid (severe) obesity due to excess calories K58.1 Irritable bowel syndrome with constipation M25.572 Pain in left ankle and joints of left foot M54.5 Low back pain G25.81 Restless legs syndrome N20.0 Calculus of kidney I44.0 Atrioventricular block, first degree 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 06/18/2019 M25.569 Pain in unspecified knee Noel Hobson N.P. 06/18/2019 J45.909 Unspecified asthma, uncomplicated Noel Hobson, N.P. 06/18/2019 J30.2 Other seasonal allergic rhinitis Noel Hobson, N.P. 06/18/2019 L20.9 Atopic dermatitis, unspecified Noel Hobson, N.P. 06/18/2019 F33.9 Major depressive disorder, recurrent, Noel Hobson, N.P. unspecified 06/18/2019 F41.9 Anxiety disorder, unspecified Noel Hobson, N.P. 06/18/2019 G47.00 Insomnia, unspecified Noel Hobson, N.P. 06/18/2019 K64.9 Unspecified hemorrhoids Noel Hobson, N.P. 06/18/2019 F17.210 Nicotine dependence, cigarettes, uncomplicated Noel Hobson, N.P. 06/18/2019 F12.10 Cannabis abuse, uncomplicated Noel Hobson, N.P. 06/18/2019 H53.30 Unspecified disorder of binocular vision Noel Hobson N.P. 06/18/2019 L72.3 Sebaceous cyst Noel Hobson N.P. 06/18/2019 R73.01 Impaired fasting glucose Noel Hobson N.P. 06/18/2019 E66.01 Morbid (severe) obesity due to excess calories Noel Hobson N.P. 06/18/2019 K58.1 Irritable bowel syndrome with constipation Noel Hobson N.P. 06/18/2019 M25.572 Pain in left ankle and joints of left foot Noel Hobson N.P. 06/18/2019 M54.5 Low back pain Noel Hobson, N.P. 06/18/2019 G25.81 Restless legs syndrome Noel Hobson N.P. 06/18/2019 N20.0 Calculus of kidney Noel Hobson N.P. 06/18/2019 I44.0 Atrioventricular block, first degree Noel Hobson, N.P. 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 06/18/2019 J20.9 Acute bronchitis, unspecified Noel Hobson N.P. 06/18/2019 H92.03 Otalgia, bilateral Noel Hobson N.P. 06/18/2019 R05 Cough Noel Hobson N.P. 06/18/2019 R09.81 Nasal congestion oNel Hobson N.P. 06/18/2019 M54.41 Lumbago with sciatica, right side Noel Hobson, N.P. 06/18/2019 M51.36 Other intervertebral disc degeneration, lumbar Noel Hobson, N.P. region 06/18/2019 K12.0 Recurrent oral aphthae Noel Hobson N.P. 06/18/2019 M54.2 Cervicalgia Noel Hobson N.P. 06/18/2019 M54.12 Radiculopathy, cervical region Noel Hobson N.P. 06/18/2019 M25.511 Pain in right shoulder Noel Hobson N.P. 06/18/2019 Z68.35 Body mass index (BMI) 35.0-35.9, adult Noel Hobson N.P. 06/06/2019 I10 Essential (primary) hypertension Noel Hobson N.P. 06/06/2019 M25.569 Pain in unspecified knee Noel Hobson N.P. 06/06/2019 J45.909 Unspecified asthma, uncomplicated Noel Hobson, N.P. 06/06/2019 J30.2 Other seasonal allergic rhinitis Noel Hobson N.P. 06/06/2019 L20.9 Atopic dermatitis, unspecified Noel Hobson N.P. 06/06/2019 F33.9 Major depressive disorder, recurrent, Noel Hobson N.P. unspecified 06/06/2019 F41.9 Anxiety disorder, unspecified Noel Hobson, N.P. 06/06/2019 G47.00 Insomnia, unspecified Noel Hobson N.P. 06/06/2019 K64.9 Unspecified hemorrhoids Noel Hobson N.P. 06/06/2019 F17.210 Nicotine dependence, cigarettes, uncomplicated Noel Hobson, N.P. 06/06/2019 F12.10 Cannabis abuse, uncomplicated Noel Hobson, N.P. 06/06/2019 H53.30 Unspecified disorder of binocular vision Noel Hobson N.P. 06/06/2019 L72.3 Sebaceous cyst Noel Hobson N.P. 06/06/2019 R73.01 Impaired fasting glucose Noel Hobson N.P. 06/06/2019 E66.01 Morbid (severe) obesity due to excess calories Noel Hobson N.P. 06/06/2019 K58.1 Irritable bowel syndrome with constipation Noel Hobson N.P. 06/06/2019 M25.572 Pain in left ankle and joints of left foot Noel Hobson N.P. 06/06/2019 M54.5 Low back pain Noel Hobson N.P. 06/06/2019 G25.81 Restless legs syndrome Noel Hobson N.P. 06/06/2019 N20.0 Calculus of kidney Noel Hobson N.P. 06/06/2019 I44.0 Atrioventricular block, first degree Noel Hobson N.P. 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 06/06/2019 J20.9 Acute bronchitis, unspecified Noel Hobson N.P. 06/06/2019 H92.03 Otalgia, bilateral Noel Hobson N.P. 06/06/2019 R05 Cough Noel Hobson, N.P. 06/06/2019 R09.81 Nasal congestion Noel Hobson N.P. 06/06/2019 M54.41 Lumbago with sciatica, right side Noel Hobson N.P. 06/06/2019 M51.36 Other intervertebral disc degeneration, lumbar Noel Hobson N.P. region 06/06/2019 K12.0 Recurrent oral aphthae Noel Hobson N.P. 06/06/2019 Z68.35 Body mass index (BMI) 35.0-35.9, adult Noel Hobson N.P. 04/25/2019 I10 Essential (primary) hypertension Noel Hobson N.P. 04/25/2019 M25.569 Pain in unspecified knee Noel Hobson N.P. 04/25/2019 J45.909 Unspecified asthma, uncomplicated Noel Hobson N.P. 04/25/2019 J30.2 Other seasonal allergic rhinitis Noel Hobson N.P. 04/25/2019 L20.9 Atopic dermatitis, unspecified Noel Hobson N.P. 04/25/2019 F33.9 Major depressive disorder, recurrent, Noel Hobson N.P. unspecified 04/25/2019 F41.9 Anxiety disorder, unspecified Noel Hobson N.P. 04/25/2019 G47.00 Insomnia, unspecified Noel Hobson N.P. 04/25/2019 K64.9 Unspecified hemorrhoids Noel Hobson N.P. 04/25/2019 F17.210 Nicotine dependence, cigarettes, uncomplicated Noel Hobson N.P. 04/25/2019 F12.10 Cannabis abuse, uncomplicated Noel Hobson N.P. 04/25/2019 H53.30 Unspecified disorder of binocular vision Noel Hobson N.PPatrick 04/25/2019 L72.3 Sebaceous cyst Noel Hobson N.P. 04/25/2019 R73.01 Impaired fasting glucose Noel Hobson N.P. 04/25/2019 E66.01 Morbid (severe) obesity due to excess calories Noel Hobson N.P. 04/25/2019 K58.1 Irritable bowel syndrome with constipation Noel Hobson N.PPatrick 04/25/2019 M25.572 Pain in left ankle and joints of left foot Noel Hobson N.P. 04/25/2019 M54.5 Low back pain Noel Hobson N.P. 04/25/2019 G25.81 Restless legs syndrome Noel Hobson N.P. 04/25/2019 N20.0 Calculus of kidney Noel Hobson N.P. 04/25/2019 I44.0 Atrioventricular block, first degree Noel Hobson N.P. 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 04/25/2019 H92.03 Otalgia, bilateral Noel Hobson N.P. 04/25/2019 R05 Cough Noel Hobson N.P. 04/25/2019 R09.81 Nasal congestion Noel Hobson N.P. 04/25/2019 M54.41 Lumbago with sciatica, right side Noel Hobson N.P. 04/25/2019 M51.36 Other intervertebral disc degeneration, lumbar Noel Hobson N.P. region 04/25/2019 Z68.35 Body mass index (BMI) 35.0-35.9, adult Noel Hobson N.P. 04/23/2019 I10 Essential (primary) hypertension Noel Hobson N.P. 04/23/2019 M25.569 Pain in unspecified knee Noel Hobson N.P. 04/23/2019 J45.909 Unspecified asthma, uncomplicated Noel Hobson N.P. 04/23/2019 J30.2 Other seasonal allergic rhinitis Noel Hobson N.P. 04/23/2019 L20.9 Atopic dermatitis, unspecified Noel Hobson N.P. 04/23/2019 F33.9 Major depressive disorder, recurrent, Noel Hobson N.P. unspecified 04/23/2019 F41.9 Anxiety disorder, unspecified Noel Hobson N.P. 04/23/2019 G47.00 Insomnia, unspecified Noel Hobson N.P. 04/23/2019 K64.9 Unspecified hemorrhoids Noel Hobson N.P. 04/23/2019 F17.210 Nicotine dependence, cigarettes, uncomplicated Noel Hobson N.P. 04/23/2019 F12.10 Cannabis abuse, uncomplicated Noel Hobson N.P. 04/23/2019 H53.30 Unspecified disorder of binocular vision Noel Hobson N.P. 04/23/2019 L72.3 Sebaceous cyst Noel Hobson N.P. 04/23/2019 R73.01 Impaired fasting glucose Noel Hobson N.P. 04/23/2019 E66.01 Morbid (severe) obesity due to excess calories Noel Hobson N.P. 04/23/2019 K58.1 Irritable bowel syndrome with constipation Noel Hobson N.P. 04/23/2019 M25.572 Pain in left ankle and joints of left foot Noel Hobson N.P. 04/23/2019 M54.5 Low back pain Noel Hobson N.P. 04/23/2019 G25.81 Restless legs syndrome Noel Hobson N.P. 04/23/2019 N20.0 Calculus of kidney Noel Hobson N.P. 04/23/2019 I44.0 Atrioventricular block, first degree Noel Hobson N.P. 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 04/23/2019 J20.9 Acute bronchitis, unspecified Noel Hobson N.P. 04/23/2019 H92.03 Otalgia, bilateral Noel Hobson N.P. 04/23/2019 R05 Cough Noel Hobson N.P. 04/23/2019 R09.81 Nasal congestion Noel Hobson N.P. 04/23/2019 M54.41 Lumbago with sciatica, right side Noel Hobson N.P. 04/23/2019 Z68.35 Body mass index (BMI) 35.0-35.9, adult Noel Hobson N.P. 02/21/2019 I10 Essential (primary) hypertension Noel Hobson N.P. 02/21/2019 M25.569 Pain in unspecified knee Noel Hobson N.P. 02/21/2019 J45.909 Unspecified asthma, uncomplicated Noel Hobson, N.P. 02/21/2019 J30.2 Other seasonal allergic rhinitis Noel Hobson N.P. 02/21/2019 L20.9 Atopic dermatitis, unspecified Noel Hobson N.P. 02/21/2019 F33.9 Major depressive disorder, recurrent, Noel Hobson N.P. unspecified 02/21/2019 F41.9 Anxiety disorder, unspecified Noel Hobson, N.P. 02/21/2019 G47.00 Insomnia, unspecified Noel Hobson, N.P. 02/21/2019 K64.9 Unspecified hemorrhoids Noel Hobson N.P. 02/21/2019 F17.210 Nicotine dependence, cigarettes, uncomplicated Noel Hobson, N.P. 02/21/2019 F12.10 Cannabis abuse, uncomplicated Noel Hobson N.P. 02/21/2019 H53.30 Unspecified disorder of binocular vision Noel Hobson N.P. 02/21/2019 L72.3 Sebaceous cyst Noel Hobson N.P. 02/21/2019 R73.01 Impaired fasting glucose Noel Hobson N.P. 02/21/2019 E66.01 Morbid (severe) obesity due to excess calories Noel Hobson N.P. 02/21/2019 K58.1 Irritable bowel syndrome with constipation Noel Hobson N.P. 02/21/2019 M25.572 Pain in left ankle and joints of left foot Noel Hobson N.P. 02/21/2019 M54.5 Low back pain Noel Hobson N.P. 02/21/2019 G25.81 Restless legs syndrome Noel Hobson N.P. 02/21/2019 N20.0 Calculus of kidney Noel Hobson N.P. 02/21/2019 I44.0 Atrioventricular block, first degree Noel Hobson N.P. 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 02/21/2019 J20.9 Acute bronchitis, unspecified Noel Hobson N.P. 02/21/2019 H92.03 Otalgia, bilateral Noel Hobson N.P. 02/21/2019 R05 Cough Noel Hobson N.P. 02/21/2019 R09.81 Nasal congestion Noel Hobson N.P. 02/21/2019 Z68.35 Body mass index (BMI) 35.0-35.9, adult Noel Hobson N.PPatrick Plan of Treatment No Information Available Functional Status Functional Condition Comment Date Status Glasses Active Mental Status Description No Information Available Referrals Refer to Dr Reason for Referral Status Appt Date Gabriel Luo MD Closed 06/16/2019 [address] MENDOZA [facility] [id number] [phone]
--- OUTSIDE RECORDS SUMMARY | 2019-07-26 09:20 | XMS REPORT | Summary of Care ---
:1985 Author Organization [facility] Address 1 [facility] ANJEL [place] [address] Care Team Providers Name Role Phone Raquel Recinos MD Primary Care Provider Reason for Visit Reason Comments Low Back Pain Neck Pain Refer to Department Only (Routine) Status Reason Specialty Diagnoses / Referred By Referred To Procedures Contact Contact Pending Physical Diagnoses Ruptured lumbar disc Cervical radiculopathy Unruly Kim Review Therapy MD [facility] - [address] [facility] [address] [place] [place] [address] [address] [address] Phone: [place], [place] [phone] Fax: Encounter Details Date Type Department Care Team Description 06/24/2019 Office Visit [facility] Abril Almanza PT Displacement of lumbar intervertebral disc without myelopathy (Primary Dx); - [address] Cervical radiculitis Therapy [address] [place] [address] [address] [phone] [place] [address] Allergies No Known Allergiesdocumented as of this encounter (statuses as of 06/24/2019) Medications Medication Sig Dispensed Refills Start Date [...] as of this encounter (statuses as of 06/24/2019) Active Problems No known active problemsdocumented as [...] encounter Progress Notes Abril Almanza, PT - 06/24/2019 2:00 PM EST [facility] Initial Evaluation Outpatient Physical Therapy Services [facility] [address] [place] [phone] Patient: Hal Vazquez II : 1985 Date of Service: 06/24/2019 Referring Physician: Levi Kim Primary Diagnosis: ICD-9-CM ICD-10-CM 1. Displacement of lumbar intervertebral disc without myelopathy 722.10 M51.26 2. Cervical radiculitis 723.4 M54.12 Time In: 0200 Time Out: 0 Subjective: He is a 34-y.o.-year-old male who presents for outpatient physical therapy with a chiefcomplaint of right low back and neck pain. Pain started about a month ago and has back improved neckstarted to bother more. Has history of some low back pain but not the shoulder pain. Hard to even get off the couh over the weekend. Right shoulder/neck pain 3/10 at rest with 8/10 with movement. Intermittently in the hand but most often neck to upper arm. Sitting more than 15 minutes increases low back. Pain radiates down into the calf. Tingling into the toes intermittently. Calf and back of thigh hurt with hills and stairs. Recent MRI shows a broad-based disc bulging with superimposed central disc extrusion at L5-S1 this effaces the lateral recesses bilateral with neuroforaminal narrowing. Also central disc protrusion atL4-5. Prior Functional Status: independent Current Functional Status: unable to sit for prolong periods, pain with all position changes Abuse/Neglect Screening Are you being threatened or hurt by anyone? : No FOTO Data FOTO Intake Completed: Yes Intake FS Score: 56 Predicted FS Score: 63 Objective: History reviewed. No pertinent past medical history. Past Surgical History: Procedure Laterality Date UNILATERAL ORCHIECTOMY for undescended testicle Current Outpatient Medications: albuterol HFA (VENTOLIN) 108 (90 BASE) MCG/ACT Inhalation Aero Soln, Take 2 Puffs by inhalation., Disp: , Rfl: amLodipine (NORVASC) 10 MG Oral Tab, Take 10 mg by mouth DAILY., Disp: , Rfl: fluticasone-salmeterol diskus (ADVAIR DISKUS) 250-50 MCG/DOSE Inhalation AEROSOL POWDER, BREATH ACTIVATED, Take 1 INHL by inhalation TWICE DAILY., Disp: , Rfl: HYDROcodone-acetaminophen (NORCO) 10-325 MG Oral Tab, Take 1 Tab by mouth., Disp: , Rfl: IBUPROFEN 200 PO, Take by mouth., Disp: , Rfl: Loratadine (CLARITIN) 10 MG Oral Cap, Take by mouth., Disp: , Rfl: No Known Allergies Posture: Rounded shoulders, forward head, excessive kyphosis Palpation: Pain at traps, rhomboids, and right RTC Pain at Baseline: 5 Cervical AROM: Flexion: WNL Extension: 50% with right side pain Rotation R: WNL with bilateral pain Rotation L: WNL with bilateral pain Sidebending R: right side pain 50 degrees Sidebending L: right side pain 50 degrees Protraction: WNL with right side shoulder blade pain Retraction: WNL with pain Cervical PROM with Overpressure: WNL Neurological Review: Upper Extremity Myotomes: intact Upper Extremity Dermatomes: intact Joint Mobility Assessment: hypombolity noted at spine Special Tests: Spurlings:negative Distraction: negative Shoulder ROM WNL with pain at end range in each plane Strength: Pain at upper trap during shoulder flex/abd testing Weakness in ER but no reproduction of pain Pain at Baseline low олег: 3 Lumbar AROM: Flexion: Fingertips to patella with peripheralization of symptoms Extension: WNL with increase in LBP Right lateral flexion: fingertips to one inch above joint but no pain Left lateral fleion: fingertips to left lateral joint line with right LBP Rotation: full without increase in symptoms Lumbar Repeated Movement Testing: Flexion in Standing: symptoms peripheralize Extension in Standing: centralize with back pain Neurological Review: Lower Extremity Dermatomes: intact Lower Extremity Myotomes: Weakness in knee extension and ankle DF Special Tests: Seated Slump: unable to do d/t pain Straight Leg Raise: positive Plan of Care Plan of Care Start Date: 06/24/19 Plan of Care Expiration Date: 09/23/19 Prior Function Comment: independent Current Function Comment: unable to sit for prolong periods, pain with all position changes Rehabilitative Prognosis: Good Planned Intervention(s): PT Eval Moderate Complexity (84450);Therapeutic Exercise (Timed) (87894);Ultrasound (Timed) (09379);Manual Therapy (Timed) ( 36706);Moist Hot Pack (66395);Cold Pack (05829) Frequency of Treatments: 2 times weekly Duration of Treatments: 3 months History Components: Moderate (1-2 personal factors and/or comorbidities) Examination of Body Systems/Components: High (Addressing a total of 4 or more elements) Clinical Presentation: Evolving - changing/inconsistent clinical characteristics (Moderate) Clinical Decision Making (complexity): Moderate Treatment Number: 1 Total Time of Evaluation: 30 Outcome Tools Used: FOTO Assessment: Patient presents with diffuse c/o pain from right side neck to upper arm and then rightside low back into the posterior leg/calf. When pain is very bad it shoots up from low back to neck.Apperas t have preference for extension at the lumbar spine with positive right LE SLR and weakness in L4-S1. Findings support MRI findings of disc bulge. Neck pain appears more soft tissue and postural related but will continue to assess each visit. Patient reports that low back is more limiting and he is waiting on x-ray results for cervical spine so he would like to start with treatment at the lumbar. Would benefit from therapy to restore lumbar/cervical ROM, improve core/scapular stabilizer strength, LE flexibility, posture and tolerance for all ADL's. Was Physical Therapy treatment performed at this visit? Yes: Interventions: FOTO Data FOTO Intake Completed: Yes Intake FS Score: 56 Predicted FS Score: 63 Therapeutic Exercises (76447) Patient Education/Home Exercise Program: HEP given and performed Number of Exercises?: 6 Total Minutes (all Therapeutic Exercise): 30 Exercise #1 Exercise Name: Prone on elbows Reason for Exercise: Joint Mobility Location/Body Area: Lumbar Spine Sets/Reps: 3x30 seconds Exercise #2 Exercise Name: prone knee flexion Reason for Exercise: Joint Mobility Location/Body Area: Lumbar Spine Sets/Reps: 10 Exercise #3 Exercise Name: piriformis stretch Reason for Exercise: Flexibility Location/Body Area: Lumbar Spine Sets/Reps: 3x30 seconds Exercise #4 Exercise Name: KTC Reason for Exercise: Joint Mobility;Flexibility Location/Body Area: Lumbar Spine Sets/Reps: 3x30 seconds Exercise #5 Exercise Name: LTR Reason for Exercise: Joint Mobility Location/Body Area: Lumbar Spine Sets/Reps: 6x5 Exercise #6 Exercise Name: 90-90 glides Reason for Exercise: Muscle Performance;Flexibility Location/Body Area: Lumbar Spine Sets/Reps: 5x5 Used during prone therapeutic exercise Modalities Modalities Needed?: Estim Unattended ([employer]mercial 46533) Estim Unattended ([facility] 63492) Reason for Use: Pain Control Body Area: lumbar Waveform Used: Interferential Parameters: 10-11.5 Total Minutes: 10 Plan for Next Visit: Continue per POC. Add hip flexor stretch if tolerated. Assess ULTT. Evaluation Complexity Assessment: History Components: Moderate (1-2 personal factors and/or comorbidities) Examination of Body Systems/Components: High (Addressing a total of 4 or more elements) Clinical Presentation: Evolving - changing/inconsistent clinical characteristics (Moderate) Clinical Decision Making (complexity): Moderate Treatment Number: 1 Total Time of Evaluation: 30 Total Number of Timed Code Treatment Minutes: 30 Author: Abril Almanza, PT 06/24/2019 15:16 documented in this encounter Plan of Treatment Date Type Specialty Care Team Description 06/26/2019 Office Visit Physical Therapy Abril Almanza, PT [address] [place] [address] [place] [address] [phone] 07/01/2019 Office Visit Physical Therapy Abril Almanza, PT [address] [place] [address] [place] [address] [phone] 07/03/2019 Office Visit Physical Therapy Abril Almanza, PT [address] [place] [address] [place] [address] [phone] 07/07/2019 Office Visit Orthopedics Levi Kim MD [address] [facility] [place] [address] [phone] 07/08/2019 Office Visit Physical Therapy Abril Almanza, PT [address] [facility] [place] [address] [phone] 07/10/2019 Office Visit Physical Therapy Abril Almanza, PT [address] [place] [address] [place] [address] [phone] 07/15/2019 Office Visit Physical Therapy Abril Almanza, PT [address] [facility] [place] [address] [phone] 07/17/2019 Office Visit Physical Therapy Abril Almanza, PT [address] [facility] [place] [address] [phone] Name Type Priority Associated Diagnoses Order Schedule [...] of lumbar intervertebral disc without myelopathy Cervical radiculitis Brachial neuritis or radiculitis nos documented in this encounter Guarantor Name Account Type Relation to Date of Phone Billing Patient Address Hal Vazquez Jermaine II Personal/Family 1985 [address] [facility] (Home) [place], [place] ([place]) [address] documented as of this encounter
--- OUTSIDE RECORDS SUMMARY | 2019-07-26 09:20 | XMS REPORT | Continuity of Care Document ---
:1985 External Reference #:[id number] Author Name Noel Hobson N.P. 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 en Pain 5-325mg Tablets Amoxicillin/Clavulanat 1 tab by mouth 14tabs K12.0 Raquel Recinos, 2019 e Potassium twice a day M.D. 875-125mg Tablets Prednisone 2 tab by mouth 30tabs M54.41 Raquel Recinos, 04/23/2019 20mg Tablets daily 4 M.D. days,30mg x3d,30uma5t,10gm x7d Nortriptyline HCL 1 cap by mouth 30caps G47.00 Raquel Recinos, 07/10/2018 75mg at bedtime M.D. Capsules Naproxen 1 tab by mouth 60tabs W01.10xA Raquel Recinos, 04/29/2018 500mg Tablets twice a day M.D. Tylenol Extra Strength 2 tabs by mouth 180tabs W01.10xA Raquel RecinosPatrick, 04/29/2018 three times a M.D. 500mg Tablets day as directed. max daily dose of tylenol from all sources to not exceed 4000mg Claritin 1 by mouth every 30tabs J30.2 Raquel RecinosPatrick, 03/06/2018 10mg Tablets day M.D. Proventil HFA 2 unit by mouth 13.4gm J45.909 JorjeRaquel scottPatrick, 05/06/2015 108(90Base) every 4 hours as M.D. mcg/Act Aerosol needed Advair Diskus 1 by mouth twice 60units J45.909 JorjeIvette scottkaia JermainePatrick, 05/06/2015 a day M.D. 250-50mcg/Dose Aerosol Amlodipine Besylate 1 by mouth every 30tabs I10 Raquel RecinosPatrick, 0000/ 0000 10mg day M.D. Tablets History Medications Hydrocodone 1 tab by 42tabs Z68.35 JorjeIvette maykaia 04/23/2019 - Bitartrate/Acetaminophen mouth Q4H M., M.D. 04/30/2019 5-325mg Tablets prn Severe Pain Immunizations CPT Code Status Date Vaccine Lot # [id number] Given 03/06/2018 Flu Vaccine [id number] Given 03/29/2015 Flu Vaccine Vital Signs Date Vital Result Comment 06/06/2019 9:19am BP Systolic 135 mmHg BP Diastolic 70 mmHg Height 76 inches 6'4" Weight 299.00 lb BMI (Body Mass Index) 36.4 kg/m2 Heart Rate 90 /min Respiratory Rate 17 /min 04/25/2019 9:29am BP Systolic 120 mmHg BP Diastolic 80 mmHg Height 76 inches 6'4" Weight 302.00 lb BMI (Body Mass Index) 36.8 kg/m2 Heart Rate 93 /min Respiratory Rate 17 /min Results Description No Information Available Procedures Description No Information Available Medical Devices Description No Information Available Encounters Type Date Location Provider Dx Diagnosis Office Visit 06/06/2019 [place] [facility] Noel Hobson, I10 Essential ( primary) 9:15a N.P. hypertension M25.569 Pain in unspecified knee [...] (BMI) 35.0-35.9, adult Office Visit 04/25/2019 9:15a [place] [facility] Noel Hobson, I10 Essential (primary) N.P. [...] (BMI) 35.0-35.9, adult Office Visit 04/23/2019 9:00a [place] [facility] Noel Hobson, I10 Essential (primary) N.P. [...] 35.0-35.9, adult Assessments Date Code Description Provider 06/06/2019 I10 Essential (primary) hypertension Noel Hobson N.P. 06/06/2019 M25.569 Pain in unspecified knee Noel Hobson N.P. 06/06/2019 J45.909 Unspecified asthma, uncomplicated Noel Hobson, N.P. 06/06/2019 J30.2 Other seasonal allergic rhinitis Noel Hobson N.P. 06/06/2019 L20.9 Atopic dermatitis, unspecified Noel Hobson, N.P. 06/06/2019 F33.9 Major depressive disorder, recurrent, Noel Hobson, N.P. unspecified 06/06/2019 F41.9 Anxiety disorder, unspecified Noel Hobson N.P. 06/06/2019 G47.00 Insomnia, unspecified Noel Hobson, N.P. 06/06/2019 K64.9 Unspecified hemorrhoids Noel Hobson, N.P. 06/06/2019 F17.210 Nicotine dependence, cigarettes, uncomplicated Noel Hobson, N.P. 06/06/2019 F12.10 Cannabis abuse, uncomplicated Noel Hobson N.P. 06/06/2019 H53.30 Unspecified disorder of binocular [...] Noel Hobson N.P. 06/06/2019 R05 Cough Noel Hobson N.P. 06/06/2019 R09.81 Nasal congestion Noel Hobson [...] disorder of binocular vision Noel Hobson N.P. 04/25/2019 L72.3 Sebaceous cyst Noel Hobson N.PPatrick 04/25/2019 R73.01 Impaired fasting glucose Noel Hobson N.P. 04/25/2019 E66.01 Morbid (severe) obesity due to excess calories Noel Hobson N.P. 04/25/2019 K58.1 Irritable bowel syndrome with constipation Noel Hobson N.PPatrick 04/25/2019 M25.572 Pain in left ankle and joints of left foot Noel Hobson N.P. 04/25/2019 M54.5 Low back pain Noel Hobson N.P. 04/25/2019 G25.81 Restless legs syndrome Noel Hobson N.PPatrick 04/25/2019 N20.0 Calculus of kidney Noel Hobson [...] bilateral Noel Hobson N.P. 04/23/2019 R05 Cough Neol Hobson N.P. 04/23/2019 R09.81 Nasal congestion Noel Hobson N.P. 04/23/2019 M54.41 Lumbago with sciatica, right side Noel Hobson N.P. 04/23/2019 Z68.35 Body mass index (BMI) 35.0-35.9, adult Noel Hobson N.P. 02/21/2019 I10 Essential (primary) hypertension Noel Hobson N.P. 02/21/2019 M25.569 Pain in unspecified knee Noel Hobson N.P. 02/21/2019 J45.909 Unspecified asthma, uncomplicated Noel Hobson N.P. 02/21/2019 J30.2 Other seasonal allergic rhinitis Noel Hobson N.P. 02/21/2019 L20.9 Atopic dermatitis, unspecified Noel Hobson N.P. 02/21/2019 F33.9 Major depressive disorder, recurrent, Noel Hobson N.P. unspecified 02/21/2019 F41.9 Anxiety disorder, unspecified Noel Hobson N.P. 02/21/2019 G47.00 Insomnia, unspecified Noel Hobson N.P. 02/21/2019 K64.9 Unspecified hemorrhoids Noel Hobson N.P. 02/21/2019 F17.210 Nicotine dependence, cigarettes, uncomplicated Noel Hobson N.P. 02/21/2019 F12.10 Cannabis abuse, uncomplicated Noel [...] and joints of left foot Noel Hobson N.PPatrick 02/21/2019 M54.5 Low back pain Jaja Rodriguez.PPatrick 02/21/2019 G25.81 Restless legs syndrome Noel Hobson N.P. 02/21/2019 N20.0 Calculus of kidney Jaja Rodriguez.P. 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 02/21/2019 J20.9 Acute bronchitis, unspecified Noel Hobson N.PPatrick 02/21/2019 H92.03 Otalgia, bilateral Noel Hobson N.PPatrick 02/21/2019 R05 Cough Noel Hobson N.P. 02/21/2019 R09.81 Nasal congestion Noel Hobson N.P. 02/21/2019 Z68.35 Body mass index (BMI) 35.0-35.9, adult Noel Hobson N.P. Plan of Treatment 06/06/2019 - Jaja Rodriguez.Alla.I10 Essential (primary) hypertensionComments: CHECK BP TIW ( PRN)DIET AND FLUID COUNSELING LOW SODIUM DIETWT LOSSF/U LABM25.569 Pain in unspecified kneeComments:EXERCISE/HEAT /MESSAGEAVOID HEAVY LIFTING WT LOSSTYLENOL OR MOTRIN PRNJ45.909 Unspecified asthma, uncomplicatedComments:MDI / NEBULIZER TX PRN AVOID EXPOSURE TO SMOKING OR FUMES SMOKING TWYWQEGKBU38.2 Other seasonal allergic rhinitisComments:INCREASE PO FLUID USE ANTIHISTAMINE PRN SECOND HAND SMOKING AVOIDANCE SMOKING CESSATION ANYPSYOHEBWB19.9 Atopic dermatitis, unspecifiedComments:SKIN CARE INSTRUCTIONS LOTION OR BABY OIL 2-3 APPLICATION PER DAYUSE MOISTURIZING SOAPAVOID PROLONGED WATER EXPOSUREAVOID USING HOT WATER IN GYLYDAY35.9 Major depressive disorder, recurrent, unspecifiedComments:COUNCELLING AND REASSURANCE RELAXATION TECHNIQUES DISCUSSED COUNSELED RE: STRESSORS IN LIFEF41.9 Anxiety disorder, unspecifiedComments:COUNCELLING AND REASSURANCE RELAXATION TECHNIQUES DISCUSSEDCOUNSELED RE: STRESSORS IN LIFE AVOID ALLENERGY/HIGH CAFFEINE YXEGBHY66.00 Insomnia, unspecifiedComments:COUNCELLING AND REASSURANCE RELAXATION TECHNIQUES DISCUSSED COUNSELED RE: STRESSORS IN LIFE TYLENOLPM OR MOTRIN PM PRNK64.9 Unspecified hemorrhoidsComments:AVOID CONSTIPATOIN INCREASE FIBER IN DIETLAXATIVE PRNLUBRICATE ANAL AREA WITH LOTION PRN FOR DFAYKYOG65.210 Nicotine dependence, cigarettes, uncomplicatedComments:SMOKING CESSATION ZJCZKNEEGSRO16.10 Cannabis abuse, uncomplicatedComments:CESSATION ENCOURAGEDLONG TERM EFFECTS FPSRHYPYDE40.30 Unspecified disorder of binocular visionComments:USE GLASSES/CONTACTSF/U WITH QGPGOXLRKMVIHK23.3 Sebaceous cystComments:JXXKOZPG01.01 Impaired fasting glucoseComments:F/U HGAICFS QAC AN HS PRNLOW GLUCOSE DIETE66.01 Morbid (severe) obesity due to excess caloriesComments:WT LOSS COUNCELLINGEXERCISEDIET COUNCILLING HANDOUT ON DIET GIVEN TO PT WITH EXTENSIVE LPIPLMIK71.1 Irritable bowel syndrome with constipationComments:TYLENOL OR MOTRIN PRNINCREASE PO FLUIDLAXATIVE PRN F/U DIRECTEDF/U GPXKDCOBB19.572 Pain in left ankle and joints of left footComments:EXERCISE/HEAT/MESSAGETYLENOL OR MOTRIN PRNACE WRAP PRN USE SHOES INSERTS/ PSFYPWFS59.5 Low back painComments:EXERCISE/HEAT /MESSAGEAVOID HEAVY LIFTING WT LOSSTYLENOL OR MOTRIN PRNG25.81 Restless legs syndromeComments: REASSURANCE AND COUNCELLINGTYLENOL OR MOTRIN PM PRNN20.0 Calculus of kidneyComments:OXJAUFB17.0 Atrioventricular block, first degreeComments:STABLE/ OBSERVE F/U WITH XHXQGKUBFYZ03.89 Other specified conduction disordersComments:F /U LBGVANL55.9 Acute bronchitis, unspecifiedComments:INCREASE PO TVRDVOOTLV91.03 Otalgia, bilateralComments:INCREASE PO FLUIDTYLENOL OR MOTRIN PRNANTIHISTAMINE XSWFKEEI04 CoughComments:INCREASE CLEAR LIQUIDSSTEAMGARGLE WARM SALT H2O TID ROBITUSSIN DM PRNR09.81 Nasal congestionComments:INCREASE PO FLUIDTYLENOL OR MOTRIN PRNREST USE ANTIHISTAMINE PRNM54.41 Lumbago with sciatica , right sideM51.36 Other intervertebral disc degeneration, lumbar regionComments :EXERCISE/HEAT /MESSAGEAVOID HEAVY LIFTING WT LOSSTYLENOL OR MOTRIN PRNK12.0 Recurrent oral aphthaeNew Medication:Amoxicillin/Clavulanate Potassium 875-125 mg - 1 tab by mouth twice a dayZ68.35 Body mass index (BMI) 35.0-35.9, adultNew Medication:Hydrocodone Bitartrate/Acetaminophen 5-325 mg - 1 tab by mouth Q6H prn Severe PainComments:WT LOSS WITH HANDOUTEXERCISEDIET COUNCILLING Functional Status Functional Condition Comment Date Status Glasses Active Mental Status Description No Information Available Referrals Refer to Reason for Referral Status Appt Date Gabriel Luo MD Closed 06/16/2019 [address] [facility] [address] [phone]
[2019-07-26 09:25] VITALS: BP 127/98
--- NOTE | 2019-07-26 09:56 | UC ---
Back Pain HPI - HPI Summary HPI Summary: The patient is a 34-year-old male that has had lower back pain with right-sided sciatica for approximately 2 years. He is being followed by a back specialist at [facility]. He has never had any surgery or steroid injections. He recently had an MRI of his lower back. He had been doing well with physical therapy. He generally takes one hydrocodone and one naproxen daily for his symptoms. Yesterday he slipped and fell on ice. His symptoms have worsened since the fall. His had no bowel or bladder issues. He has no saddle anesthesia. During the month of June he was on a long prednisone taper. This improved his symptoms. - History of Current Complaint Chief Complaint: UCBackPain Stated Complaint: BACK PAIN Time Seen by Provider: 07/26/19 09:23 Hx Obtained From: Patient Onset/Duration: Gradual Onset, Lasting Weeks, Worse Since - yesterday Severity Initially: Moderate Severity Currently: Severe Pain Intensity: 8 Pain Scale Used: 0-10 Numeric Back Pain: Is Diffuse, Radiates To - right lower calf Aggravating Factor(s): Movement, Lifting, Bending Alleviating Factor(s): Rest Associated Signs And Symptoms: Positive: Negative Full Body (No Head): 1 - pain 2 - radiation of pain - Allergies/Home Medications Allergies/Adverse Reactions: Allergies Allergy/AdvReac Type Severity Reaction Status Date / Time No Known Allergies Allergy Verified 06/02/19 15:30 Home Medications: Home Medications Amlodipine Besylate [Norvasc] 10 mg PO DAILY WITH MEAL 07/26/19 [History Confirmed 07/26/19] Cyclobenzaprine (NF) [Cyclobenzaprine 5 MG (NF)] 5 mg PO TID PRN #21 tab [Rx] Fluticasone-Salmeterol 250-50* [Advair Diskus 250-50*] 1 puff INH BID 07/26/19 [ History Confirmed 07/26/19] Hydrocodone/Acetaminophen [Hydrocodone/Acetaminophen 5-325 mg] 1 tab PO DAILY WITH MEAL 07/26/19 [History Confirmed 07/26/19] Loratadine [Claritin] 10 mg PO DAILY WITH MEAL 07/26/19 [History Confirmed 07/26] Naproxen [Naproxen 500 mg tab] 500 mg PO DAILY WITH MEAL 07/26/19 [History Confirmed 07/26/19] PMH/Surg Hx/FS Hx/Imm Hx Previously Healthy: Yes - Surgical History Surgical History: Yes Surgery Procedure, Year, and Place: 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 - Family History Known Family History: Positive: Hypertension Negative: Cardiac Disease, Diabetes - Social History Alcohol Use: Weekly Substance Use Type: Marijuana Substance Use Comment - Amount & Last Used: 2 x daily Smoking Status (MU): Former Smoker Review of Systems All Other Systems Reviewed And Are Negative: Yes Constitutional: Positive: Negative Skin: Positive: Negative Eyes: Positive: Negative ENT: Positive: Negative Respiratory: Positive: Negative Cardiovascular: Positive: Negative Gastrointestinal: Positive: Negative Genitourinary: Positive: Negative Motor: Positive: Negative Neurovascular: Positive: Negative Musculoskeletal: Positive: Arthralgia - lower back Neurological/Mental Status: Positive: Negative Psychological: Positive: Negative Physical Exam Triage Information Reviewed: Yes Appearance: Well-Appearing, No Pain Distress, Well-Nourished Vital Signs: Initial Vital Signs Temp 98.6 F 07/26/19 09:19 Pulse 70 07/26/19 09:19 Resp 18 07/26/19 09:19 BP 127/98 07/26/19 09:19 Pulse Ox 97 07/26/19 09:19 Vital Signs Reviewed: Yes Eyes: Positive: Conjunctiva Clear ENT: Positive: Hearing grossly normal, Uvula midline. Negative: Nasal congestion, Nasal drainage, Trismus, Muffled voice, Hoarse voice Dental Exam: Normal Neck: Positive: Supple Respiratory: Positive: Lungs clear, Normal breath sounds, No respiratory distress, No accessory muscle use Cardiovascular: Positive: RRR, No Murmur Abdomen Description: Positive: Nontender, No Organomegaly. Negative: Bruit Bowel Sounds: Positive: Present Musculoskeletal: Positive: ROM Intact, No Edema Neurological: Positive: Alert Psychological Exam: Normal Skin Exam: Normal - Additional Comments back- slow wide based gait + R SLR at 15 degrees DTRs symmetrical toes down going Back Pain Course/Dx - Differential Dx/Diagnosis Provider Diagnosis: Right-sided low back pain with sciatica Discharge ED - Sign-Out/Discharge Documenting (check all that apply): Patient Departure All imaging exams completed and their final reports reviewed: No Studies - Discharge Plan Condition: Stable Disposition: HOME Prescriptions: Cyclobenzaprine (NF) [Cyclobenzaprine 5 MG (NF)] 5 mg PO TID PRN #21 tab PRN Reason: Spasms - Back Patient Education Materials: Sciatica (ED) Forms: *Work Release Referrals: Raquel Recinos MD [Primary Care Provider] - Additional Instructions: rest take your naproxen twice daily take your hydrocodone every 4 hours as needed contact your back specialist Sunday to discuss follow up - Billing Disposition and Condition Condition: STABLE Disposition: Home
== END 2019-07-26 10:08 | disposition home or self-care (01) ==
LOC: UCEAST 09:13
DX: M54.41 Lumbago with sciatica, right side (principal); Z87.891 Personal history of nicotine dependence
CPT/HCPCS: 99202; G0463